=== PATIENT | male | born 1955 | race African-American/Black ===

== ENCOUNTER → 2021-04-03 | Outpatient (CLI) | payer MEDICARE ==
[~2021-04-03] MED LIST: IOHEXOL 300 MG/ML 100ML VIAL. IV ONE
[2021-04-03 09:43] LABS: CREATININE 1.5 mg/dL (0.7-1.3); GFR 56.5
--- NOTE | 2021-04-03 10:36 | RAD ---
CT Neck with Contrast 04/03/2021 9:52 AM Indications: Squamous cell carcinoma larynx Comparison: None available Technique: Multiple axial tomographic images were obtained with intravenous contrast. Sagittal and coronal recon structions were performed. These were viewed on bone and soft tissue settings. Findings: Brain/sinuses:Visualized brain is normal. Paranasal sinuses are clear. Airway:There is mild narrowing of the airway in the infraglottic region.. Thyroid gland: Bilaterally symmetric without focal lesions. Skeletal structures: Spondylitic changes with multilevel disc degenerative changes Soft tissues: Grossly unremarkable. No abnormal lymphadenopathy is seen. Occasional subcentimeter sub mandibular lymph nodes are seen. There is a approximately 2.2 cm lipoma in the left suboccipital alirio on. Pharynx/Larynx/Trachea:Soft tissue masslike fullness in the transglottic region/larynx predominantly to the left of midline . No abnormal enhancement is seen. Upper chest: Normal Impression: 1.Soft tissue masslike fullness in the transglottic larynx without definite enhancement consistent wi th a known history of laryngeal malignancy. No neck lymphadenopathy is identified. PQRS Compliance Statement: One or more of the following individualized dose reduction techniques were utilized for this examinat ion: 1. Automated exposure control 2. Adjustment of the mA and/or kV according to patient size 3. Use of iterative reconstruction technique Electronically signed by: Mary Hinson MD (04/03/2021 10:33 AM) [id number]
== END ==
LOC: PETSC 09:02
DX: D17.79 Benign lipomatous neoplasm of other sites (principal); M47.812 Spondylosis without myelopathy or radiculopathy, cervical region; M50.30 Other cervical disc degeneration, unspecified cervical region; Z85.21 Personal history of malignant neoplasm of larynx
CPT/HCPCS: 36415; 70491; 82565; 84520; Q9967

== ENCOUNTER → 2021-04-17 | Outpatient (CLI) | payer MEDICARE ==
--- NOTE | 2021-04-17 12:28 | RAD ---
EXAM: Dual modality PET-CT Scan DATE: 04/17/2021 RADIOPHARMACEUTICAL: 14.1 mCi F-18 fluorodeoxyglucose (FDG) IV. CLINICAL HISTORY: Laryngeal cancer staging. COMPARISON: Neck CT dated 04/03/2021. TECHNIQUE: Approximately 45 minutes after tracer administration, routine, attenuation-corrected Posit lynda Emission Tomography (PET) images were obtained from the level of the base of the skull through th e level of the mid thighs. Tomographic reconstructions are reviewed in coronal, transaxial and sagitt al planes. Non-contrast CT imaging was performed for attenuation correction and localization purpose s only. These images do not constitute a diagnostic-quality CT examination and were not used to diag nose disease independently of the PET images. The blood glucose level was 179 mg/dL at the time of FDG administration. *One or more of the following individualized dose reduction techniques were utilized for this examina tion: 1. Automated exposure control. 2. Adjustment of the mA and/or kV according to patient size. 3. Use of iterative reconstruction technique. FINDINGS: There is mild increased tracer activity within the midline along the anterior commissure of the vocal cords with an SUV of 3.2. There is slight soft tissue fullness in this location, without a discrete mass on the CT portion of the exam. There is fairly symmetric greater tracer activity invol ving the bilateral neck which appears to be predominantly vascular. No convincing abnormal lymph node with abnormal tracer activity is seen to suggest metastatic disease. There is mild radiotracer activity within SUV of 1.7 associated with soft tissue stranding along the posterior aspect of a suspected left posterior neck lipoma measuring 3.1 cm in maximum dimension. Thi s may be inflammatory in etiology. There is increased radiotracer activity within the rectum with an SUV of 9.2. This is above the baseline background greater tracer activity throughout the remainder of the colon. The CT portion of the exam demonstrates soft tissue fullness involving the glottis. The airway is pat ent and midline. There are nonspecific cervical chain lymph nodes. These are not clearly pathological ly enlarged. No discrete thyroid nodule is seen. The parotid and submandibular glands are unremarkabl e. The visualized portions the brain are unremarkable. There is atherosclerotic plaque involving the car otid bifurcations. The heart is mildly enlarged. There is coronary artery atherosclerosis. No mediast inal or hilar lymphadenopathy is seen. There is pulmonary emphysema. There is no infiltrate. There is no suspicious pulmonary nodule. There is hepatic steatosis. The gallbladder, pancreas, spleen, adrenal glands and kidneys are unremar kable. There is no appendicitis. There is no bowel obstruction. There is urinary bladder wall thicken ing. The prostate is enlarged. There is calcified atherosclerotic plaque involving the abdominal aort a and aortic branch vessels. There is no aneurysm. There are degenerative changes throughout the spin e and involving both hips. There are several small sclerotic osseous lesions likely due to bone islan ds. IMPRESSION: 1. Mild nonspecific radiotracer activity along the midline anterior commissure of the vocal cords SUV of 3.2. This may be due to physiologic vocal cord activity. There is slight soft tissue fullness in this location which is better characterized on a prior contrast-enhanced CT. No discrete mass or conv incing surrounding greater tracer avid lymph node is seen. 2. Mild increased tracer tracer activity involving the rectum. This may be due to asymmetric physiolo gic bowel activity. The CT portion of the exam does not convincingly demonstrate findings to suggest proctitis/colitis. Correlate with symptomatology and prior colonoscopy findings. 3. Mild radiotracer activity associated with a region of fatty stranding along the posterior aspect o f the left posterior neck lipoma measuring 3.0 cm. This may be inflammatory. Correlate with physical exam and possible neck sonography to confirm benignity. 4. Prostatomegaly and urinary bladder wall thickening likely due to chronic outlet obstruction. Corre late with a PSA level. Electronically signed by: Sidra Somers MD (04/17/2021 12:26 PM) [id number]
== END ==
LOC: PETSC 10:15
DX: C32.0 Malignant neoplasm of glottis (principal); C32.9 Malignant neoplasm of larynx, unspecified; J43.9 Emphysema, unspecified; I65.29 Occlusion and stenosis of unspecified carotid artery; I51.7 Cardiomegaly; I25.10 Atherosclerotic heart disease of native coronary artery without angina pectoris; K76.0 Fatty (change of) liver, not elsewhere classified; N40.0 Benign prostatic hyperplasia without lower urinary tract symptoms; I70.0 Atherosclerosis of aorta; M16.0 Bilateral primary osteoarthritis of hip; M47.819 Spondylosis without myelopathy or radiculopathy, site unspecified; Z98.890 Other specified postprocedural states
CPT/HCPCS: 78815; A9552

== ENCOUNTER → 2021-11-09 | Outpatient (CLI) | payer MEDICARE ==
--- NOTE | 2021-11-09 16:27 | CARD ---
MR#: [id number] Date of Study: 11/09/2021 Ordering Physician: STAFF NON, Referring Physician: STAFF REYNOLDS, Tech: MadhaviLeona Pearce KELSEY APPROVED REPORT EXAM: Two-dimensional and M-mode echocardiogram with Doppler and color Doppler. Other Information Quality : AverageHR: 69bpm INDICATION Pre-Op RISK FACTORS Hyperlipidemia Diabetes 2D DIMENSIONS RVDd2.7 (2.9-3.5cm)Left Atrium(2D)2.6 (1.6-4.0cm) IVSd1.1 (0.7-1.1cm)Aortic Root(2D)3.6 (2.0-3.7cm) LVDd5.1 (3.9-5.9cm)LVOT Diameter2.1 (1.8-2.4cm) PWd1.0 (0.7-1.1cm)LVDs2.7 (2.5-4.0cm) FS (%) 46.8 %SV97.6 ml Aortic Valve AoV Peak Damir.105.0cm/sAoV VTI21.8cm AO Peak GR.4.4mmHgLVOT Peak Damir.96.1cm/s LVOT VTI 19.06cmAO Mean GR.2mmHg ARACELY (VMAX)2.49qs6LAO (VTI)2.98cm2 Mitral Valve MV E Gpmrbebg95.8cm/sMV DECEL [id number] MV A Rwptbptu18.9cm/sMV [id number] E/A Ratio1.3MVA (PHT)3.79cm2 TDI E/Lateral E'8.3E/Medial E'5.7 Pulmonary Valve PV Peak Caeacioa75.6cm/sPV Peak Grad.4mmHg Tricuspid Valve TR P. Npuojzpf637xd/sTR Peak Gr.15mmHg Pulmonary Vein S1 Himzoqhc25.2cm/sD2 Cuwlyucd31.9cm/s PVa [id number] LEFT VENTRICLE The left ventricle is normal size. There is mild concentric left ventricular hypertrophy. The left ve ntricular systolic function is normal and the ejection fraction is within normal range. The Ejection Fraction is 50-55%. There is normal LV segmental wall motion. Transmitral Doppler flow pattern is Gra de II-pseudonormal filling dynamics. No left ventricle thrombus noted on this study. There is no vent ricular septal defect visualized. There is no left ventricular aneurysm. There is no mass noted in th e left ventricle. RIGHT VENTRICLE The right ventricle is normal size. There is normal right ventricular wall thickness. The right ventr icular systolic function is normal. ATRIA The left atrium size is normal. The right atrium size is normal. The interatrial septum is intact wit h no evidence for an atrial septal defect or patent foramen ovale as noted on 2-D or Doppler imaging. AORTIC VALVE The aortic valve is calcified but opens well. Doppler and Color Flow revealed trace aortic regurgitat ion. There is no significant aortic valvular stenosis. Calculated aortic valve area is 3.07 cm2 with maximum pressure gradient of 5 mmHg and mean pressure gradient of 3 mmHg. MITRAL VALVE The mitral valve is normal in structure and function. There is no evidence of mitral valve prolapse. There is no mitral valve stenosis. Doppler and Color-flow revealed trace mitral regurgitation. TRICUSPID VALVE The tricuspid valve is normal in structure and function. Doppler and Color Flow revealed trace tricus pid regurgitation. There is no tricuspid valve prolapse or vegetation. There is no tricuspid valve st enosis. PULMONIC VALVE The pulmonic valve is not well visualized. Doppler and Color Flow revealed trace pulmonic valvular re gurgitation. There is no pulmonic valvular stenosis. GREAT VESSELS The aortic root is normal in size. The IVC was not visualized. PERICARDIAL EFFUSION There is no evidence of significant pericardial effusion. Critical Notification Critical Value: No <Conclusion> The left ventricle is normal size. The left ventricular systolic function is normal and the ejection fraction is within normal range. The Ejection Fraction is 50-55%. There is normal LV segmental wall motion. There is mild concentric left ventricular hypertrophy. Doppler and Color Flow revealed trace aortic regurgitation. There is no significant aortic valvular stenosis. Doppler and Color-flow revealed trace mitral regurgitation. Doppler and Color Flow revealed trace tricuspid regurgitation. Signed by : Reynold Cleary MD Electronically Approved : 11/09/2021 16:27:13
== END ==
LOC: ECHO 08:48
PROVIDERS: ATTEND Otolaryngology
DX: Z01.818 Encounter for other preprocedural examination (principal); I35.1 Nonrheumatic aortic (valve) insufficiency; I51.7 Cardiomegaly; J38.3 Other diseases of vocal cords
CPT/HCPCS: 93306